=== PATIENT | male | born 1970 | race Caucasian/White ===

== ENCOUNTER → 2017-10-10 | Outpatient (CLI) | payer MEDICARE, OTHER ==
--- NOTE | 2017-10-10 09:59 | XR ---
Right foot HISTORY: Pain at first metatarsophalangeal joint, trauma one week prior 3 views of the right foot Bone mineralization, joint spaces and alignment are maintained. IMPRESSION: No fracture or dislocation.
== END | disposition home or self-care (01) ==
LOC: RADXRYALE 09:01
PROVIDERS: ATTEND Physician Assistant Medical
DX: S91.301A Unspecified open wound, right foot, initial encounter (principal)

== ENCOUNTER 2017-12-06 07:16 | Day surgery (SDC) | payer MEDICARE, OTHER ==
[2017-12-04 14:44] VITALS: BMI 40.4
[~2017-12-06 07:16] MED LIST: LACTATED RINGERS 1,000 ML IV SCH
[2017-12-06 07:34] VITALS: TEMP 97.5
[2017-12-06] MEDS ORDERED: LIDOCAINE 1% 20 ML VIAL (10MG/ML) FOR IV START INTRADERMA ONE (07:34)
[2017-12-06] MEDS ORDERED: LACTATED RINGERS 1,000 ML IV ONE (07:34)
[2017-12-06 07:41] LABS: Glucose,Whole Blood 133 mg/dL (75-99)
[2017-12-06] MEDS ORDERED: PROPOFOL 10 MG/ML 20 ML VIAL IV ONE (08:34)
[2017-12-06] MEDS ORDERED: LIDOCAINE 1% INJ 10MG/ML (20 ML MDV) ONE (08:34)
[2017-12-06 09:10] VITALS: RESP 16
[2017-12-06 09:22] VITALS: BP 117/76
[2017-12-06 09:34] VITALS: PULSE 69
--- NOTE | 2017-12-06 12:37 | P.PCN ---
Date of Procedure: 12/06/17 Procedure(s) Performed: procedure: 1. Esophagogastroduodenoscopy. 2. Total colonoscopy. Preoperative diagnosis: Iron deficiency anemia. Postoperative diagnosis: 1. Small sliding hiatal hernia with low grade esophagitisbut no evidence of complicated reflux disease. 2. Normal stomach and duodenum with no ulcers or bleeding. 3. Colon exam within normal limits. Preparation: HalfLytely prep. Sedation: Was provided by anesthesia. Brief clinical history: The patient is a 47-year-old male who is scheduled for this evaluation because of iron deficiency anemia. The patient has coronary atherosclerotic heart disease and had prior stents placed and has atrial fibrillation and AICD placed and has been on antiplatelet medications but no history of overt bleeding. He was continued on his antiplatelet medications for these examinations today. Procedure: With the patient on his left lateral decubitus position and after informed consent and adequate sedation, I passed the Olympus-GIF 160 video upper endoscope through the cricopharyngeus down the esophagus. GE junction was around 42-43 cm from the incisors and there was a small sliding hiatal hernia. There was occasional small erosion and linear small ulceration consistent with LA grade A esophagitis, but there were no strictures or Griffith' s esophagus or any large ulcers. The endoscope was then passed into the rest of the stomach which was insufflated with air and inspected in detail including the retroflex view in the cardia. there was some mottling and erythema in the antrum consistent with mild gastritis but no ulcers or erosions. Finally, the endoscope was passed through the pylorus into the duodenum. there was no obvious abnormalities noted. No biopsies were obtained since the patient was maintained on his antiplatelet therapy. The endoscope was then withdrawn and I proceeded with the colonoscopy. Perianal area did not show any fissures or fistulas. There were no masses felt on digital rectal examination. The Olympus CFQ 160L video colonoscope was then inserted in the rectum in the usual fashion and advanced to the cecum. The mucosa appeared healthy. No polyps or tumors were seen or any obvious diverticular disease or other pathology. I retroflexed the endoscope in the rectum before the endoscope was withdrawn. The patient tolerated the procedure well. Plan: The patient was reassured. He will follow up with you as planned. He can continue to use antacids or [id number] H2 blockers on as-needed basis. Consideration can be given for a capsule endoscopy if he continues to manifest iron deficiency anemia and there is evidence of blood in his stools.
== END 2017-12-06 09:48 | disposition home or self-care (01) ==
LOC: ORWHC2ENDO 07:16
DX: D50.9 Iron deficiency anemia, unspecified (principal); K44.9 Diaphragmatic hernia without obstruction or gangrene; E11.9 Type 2 diabetes mellitus without complications; K21.0 Gastro-esophageal reflux disease with esophagitis; G47.33 Obstructive sleep apnea (adult) (pediatric); I25.10 Atherosclerotic heart disease of native coronary artery without angina pectoris; I10 Essential (primary) hypertension; I25.2 Old myocardial infarction; I48.91 Unspecified atrial fibrillation; Z95.810 Presence of automatic (implantable) cardiac defibrillator; Z79.02 Long term (current) use of antithrombotics/antiplatelets; Z95.1 Presence of aortocoronary bypass graft; Z95.5 Presence of coronary angioplasty implant and graft; Z88.8 Allergy status to other drugs, medicaments and biological substances; Z91.048 Other nonmedicinal substance allergy status; Z87.891 Personal history of nicotine dependence; Z79.899 Other long term (current) drug therapy; Z79.4 Long term (current) use of insulin
CPT/HCPCS: 45378; 43235; J2001; J2704

== ENCOUNTER → 2018-01-29 | Outpatient (CLI) | payer MEDICARE, OTHER ==
--- NOTE | 2018-01-29 09:44 | XR ---
EXAMINATION TYPE: XR shoulder complete RT DATE OF EXAM: 01/29/2018 COMPARISON: NONE HISTORY: Pain TECHNIQUE: Three views are submitted. FINDINGS: The osseous structures are intact. There is no acute fracture or dislocation. AC joint arthropathy n oted. IMPRESSION: 1. No acute process. 2. AC joint arthropathy
== END | disposition home or self-care (01) ==
LOC: RADXRYALE 09:05
PROVIDERS: ATTEND Family Medicine
DX: M12.811 Other specific arthropathies, not elsewhere classified, right shoulder (principal)

== ENCOUNTER → 2018-04-09 | Outpatient (CLI) | payer MEDICARE, OTHER ==
--- NOTE | 2018-04-09 16:36 | FL ---
EXAMINATION TYPE: Right shoulder fluoroscopic-guided arthrogram injection. DATE OF EXAM: 04/09/2018 HISTORY: 48-year-old male right shoulder pain for 3 to 4 months, no improvement with physical therapy . PROCEDURES: 1. Right shoulder fluoroscopy. 2. Right shoulder arthrogram. Total fluoroscopy time: 28 seconds. Total images: 4. TECHNIQUE: The procedure, risks, and alternatives, were discussed with the patient, who requested that emmanuel khan The consent form was signed, and teach-back occurred. The site/side of the procedure was marked with a line with participation by the patient. The accompan doreen paperwork was verified for consistency. A directed history and physical exam was performed prior to the procedure. Medication reconciliation was performed by ancillary personnel. A critical pause was performed with assisting personnel just pr ior to the procedure, and the patient's identity was confirmed using 2 identifiers. Imaging guidance was utilized to select the precise skin entry point just prior to the procedure. The anterior right shoulder was prepped and draped in the usual sterile fashion and local 1% lidocain e anesthesia was instilled. Under fluoroscopic guidance, a 22 gauge spinal needle was introduced int o the anterior right glenohumeral joint. Appropriate needle tip position was confirmed after a small amount of contrast injection. Approximately 13 ml of a 50:50 mixture of Isovue-300 iodinated contrast and sterile saline was inject ed into the glenohumeral joint. The needle was then removed. The patient tolerated the procedure well . There was no immediate complication. After the procedure, the patient's condition was unchanged. Estimated blood loss was minimal. Postprocedure radiographs show moderate degenerative spurring at the acromial clavicular joint. Subac romial space is preserved. No jodie extension of contrast into the subacromial/subdeltoid bursa. Medi an sternotomy wires with pacer leads are present. The patient was counseled on routine post procedure precautions including monitoring for signs of inf ection. IMPRESSION: Technically successful right shoulder arthrogram injection for CT. Patient unable to receive MRI. No immediate complication.
--- NOTE | 2018-04-09 16:54 | CT ---
EXAMINATION TYPE: CT arthrogram right shoulder DATE OF EXAM: 04/09/2018 COMPARISON: Arthrogram injection same day and prior radiographs HISTORY: 48-year-old male with Right shoulder pain. TECHNIQUE: Contiguous axial scanning of the right shoulder performed intra-articular injection of a 1 3 mL contrast mixture, please refer to arthrogram injection of the same day for further details. Jorge nal/sagittal reconstructions performed. 3-D reconstructions generated on a dedicated independent work station. CT DLP: 625.1 mGycm Automated exposure control for dose reduction was used. FINDINGS: Moderate to severe degenerative joint space narrowing with moderate marginal spurring at the acromioc lavicular joint. Inferior spurring mildly impinges onto the underlying myotendinous junction of the s upraspinatus. No sizable acromial/subdeltoid bursal effusion by CT. Long head biceps tendon appears intact and appropriately situated along the bicipital groove. There is a prominent sublabral recess of the superior glenoid with suggestion of a concurrent small s uperior labral tear, see coronal image 109. Tiny focal cartilage defect along the mid glenoid just posterior to the central aspect measuring appr oximately 2 mm, coronal image 115 and axial image 67. In addition, there is thinning of the inferior humeral head articular cartilage. The remainder of the glenohumeral articular cartilage appears maint ained. Slight bony irregularity of the greater tuberosity but no abnormal extension of contrast into the sub stance of either supraspinatus or infraspinatus tendons. The subscapularis tendon also appears intact . No atrophy of the rotator cuff musculature. There is mild dysplasia of the posterior inferior glenoid but no additional labral tear seen here. No os acromiale or Hill-Sachs deformity. Visualized right lung appears clear. Prepress Stripper image shows left-sided pacemaker generator and median ster notomy wires. IMPRESSION: 1. Moderate overall AC joint OA with prominent inferior spurring impinging onto the underlying cuff. 2. Mild degenerative changes in the glenohumeral joint with thinning of the inferior humeral head art icular cartilage and a small 2 mm chondral defect along the mid glenoid. 3. Normal variation with a sublabral recess but a concurrent small superior labral tear. 4. No abnormal extension of contrast into the subacromial/subdeltoid bursa or into the substance of t he rotator cuff tendons to suggest a full-thickness or articular sided tear. Arthrographic technique is limited for assessment of bursal sided tears. No rotator cuff muscle atrophy.
== END ==
LOC: RADFLMAIN 12:28
PROVIDERS: ATTEND Family Medicine
DX: M19.011 Primary osteoarthritis, right shoulder (principal)
CPT/HCPCS: 82565; 84520; 23350; 73040; 36415; 73201; J2001; Q9967

== ENCOUNTER 2018-12-08 04:28 | Emergency (ER) | payer MEDICARE, OTHER ==
[2018-12-08] MEDS ORDERED: MUPIROCIN 2% OINT 22 GM TUBE TOPICAL STA (04:52)
[2018-12-08] MEDS ORDERED: HYDROcodone/APAP 5-325MG 1 EACH TAB PO STA (04:53)
[2018-12-08] MEDS ORDERED: IBUPROFEN 400 MG TAB PO STA (04:53)
--- NOTE | 2018-12-08 04:55 | ED ---
Lower Extremity Injury HPI - General Chief Complaint: Extremity Injury, Lower Stated Complaint: Lft Leg Injury Time Seen by Provider: 12/08/18 04:43 Source: patient Mode of arrival: ambulatory - History of Present Illness Initial Comments: This patient is a 48-year-old man who presents to be evaluated for lower leg injury. Patient states that earlier tonight he had bumped his roman on his daughter's bed frame. He noticed a small patch of skin was abraded. He states that since that time there has been increasing burning pain and he is not able to sleep. Patient states that he believes his last tetanus shot is up-to-date. MD Complaint: leg injury -: hour(s) Injury: Leg: Left Type of Injury: blunt Place: home Worsens With: nothing Context: direct blow Treatments Prior to Arrival: bandage - Related Data Home Medications Medication Instructions Recorded Confirmed Furosemide [Lasix] 40 mg PO DAILY 10/22/13 12/04/17 Insulin Glargine [Lantus] 80 unit SQ HS 10/22/13 12/04/17 metFORMIN HCL [Glucophage] 1,000 mg PO BID 10/22/13 12/04/17 Insulin Regular, Human [NovoLIN R] 0 - 1 dose SQ AC-TID PRN 01/27/15 12/04/17 Zolpidem [Ambien] 10 mg PO HS PRN 01/27/15 12/04/17 Atorvastatin Calcium [Lipitor] 20 mg PO HS 11/06/17 12/04/17 Carvedilol [Coreg] 12.5 mg PO BID 11/06/17 12/04/17 Cholecalciferol [Vitamin D3] 5,000 unit PO DAILY 11/06/17 12/04/17 Clopidogrel [Plavix] 75 mg PO DAILY 11/06/17 12/04/17 Dofetilide [Tikosyn] 250 mcg PO Q12HR 11/06/17 12/04/17 Gabapentin [Neurontin] 2,400 mg PO HS 11/06/17 12/04/17 Insulin Lispro [humaLOG Kwikpen] 7 unit SQ TID-W/MEALS 11/06/17 12/04/17 Lisinopril 40 mg PO DAILY 11/06/17 12/04/17 Rivaroxaban [Xarelto] 20 mg PO DAILY 11/06/17 12/04/17 Previous Rx's Medication Instructions Recorded Mupirocin 2% Oint [Bactroban 2% 1 applic TOPICAL TID #15 gm 12/08/18 Oint] Allergies Allergy/AdvReac Type Severity Reaction Status Date / Time prednisone Allergy Rash/Hives Verified 12/04/17 14:40 adhesive AdvReac blisters Verified 12/04/17 14:40 skin Review of Systems ROS Statement: Those systems with pertinent positive or pertinent negative responses have been documented in the HPI. ROS Other: All systems not noted in ROS Statement are negative. Constitutional: Denies: fever Respiratory: Denies: cough, dyspnea Cardiovascular: Denies: chest pain Skin: Reports: as per HPI Neurological: Denies: numbness, paresthesias Hematological/Lymphatic: Denies: easy bleeding Past Medical History Past Medical History: Atrial Fibrillation, Coronary Artery Disease (CAD), Diabetes Mellitus, Hypertension, Memory Impairment, Myocardial Infarction (CO), Sleep Apnea/CPAP/BIPAP Additional Past Medical History / Comment(s): C-PAP MACHINE, HX OF BACK SURGERY- DIFFICULTY GETTING ONTO BEDS AND STRETCHERS., CONSTIPATION. Last Myocardial Infarction Date:: unknown History of Any Multi-Drug Resistant Organisms: None Reported Past Surgical History: AICD, Cholecystectomy, Coronary Bypass/CABG, Heart Catheterization With Stent, Orthopedic Surgery, Pacemaker Additional Past Surgical History / Comment(s): LOWER LUMBAR FUSION-2011, CABG X5 (2007), CARPAL TUNNEL, ARTHROSCOPY RIGHT KNEE, LEFT SHOULDER, HEART CATH WITH STENT 2015 & APRIL 2017., PACEMAKER & AICD AUGUST 2017 ([employer]) Past Anesthesia/Blood Transfusion Reactions: No Reported Reaction Date of Last Stent Placement:: 2017 Type of Cardiac Device: Permanent Pacemaker, AICD Device Placement Date:: 08/2017 Past Psychological History: No Psychological Hx Reported Smoking Status: Former smoker Past Alcohol Use History: None Reported Past Drug Use History: None Reported - Past Family History Mother Family Medical History: Cancer General Exam General appearance: alert, in no apparent distress Neurological exam: Present: normal gait. Absent: motor sensory deficit Skin exam: Present: warm, dry, normal color, other (Patient has an approximately nickel sized abrasion to the pretibial area on the leg.) Course Vital Signs 12/08/18 04:31 Temperature 97.9 F Pulse Rate 79 Respiratory 20 Rate Blood Pressure 154/106 O2 Sat by Pulse 96 Oximetry Disposition Clinical Impression: Abrasion Disposition: HOME SELF-CARE Condition: Good Instructions (If sedation given, give patient instructions): Abrasion (ED) Prescriptions: Mupirocin 2% Oint [Bactroban 2% Oint] 1 applic TOPICAL TID #15 gm Is patient prescribed a controlled substance at d/c from ED?: No Referrals: Timoteo Castaneda DO [Primary Care Provider] - 1-2 days
[2018-12-08] MEDS ORDERED: LIDOCAINE VISCOUS 2% 15 ML CUP MUCOUS MEM STA (05:40)
[2018-12-08 07:16] VITALS: BP 155/99; PULSE 65; RESP 18; TEMP 98
== END 2018-12-08 07:20 | disposition home or self-care (01) ==
LOC: EC 04:28
DX: S80.812A Abrasion, left lower leg, initial encounter (principal); I48.91 Unspecified atrial fibrillation; I25.10 Atherosclerotic heart disease of native coronary artery without angina pectoris; E11.9 Type 2 diabetes mellitus without complications; I10 Essential (primary) hypertension; I25.2 Old myocardial infarction; G47.30 Sleep apnea, unspecified; Z87.891 Personal history of nicotine dependence; Z88.8 Allergy status to other drugs, medicaments and biological substances; Z91.048 Other nonmedicinal substance allergy status; Z79.4 Long term (current) use of insulin; Z79.01 Long term (current) use of anticoagulants; Z79.02 Long term (current) use of antithrombotics/antiplatelets; Z79.899 Other long term (current) drug therapy; Z95.0 Presence of cardiac pacemaker; Z95.1 Presence of aortocoronary bypass graft; Z95.5 Presence of coronary angioplasty implant and graft; Z98.1 Arthrodesis status; Z99.89 Dependence on other enabling machines and devices; W22.8XXA Striking against or struck by other objects, initial encounter; Y92.009 Unspecified place in unspecified non-institutional (private) residence as the place of occurrence of the external cause
CPT/HCPCS: 99283

== ENCOUNTER → 2020-03-01 | Outpatient (CLI) | payer MEDICARE ==
--- NOTE | 2020-03-02 02:33 | CT ---
EXAMINATION TYPE: CT abdomen pelvis w con DATE OF EXAM: 03/01/2020 COMPARISON: None HISTORY: Hematuria and low back pain. CT DLP: 2525.9 mGycm Automated exposure control for dose reduction was used. CONTRAST: Performed with IV Contrast, patient injected with 80ml mL of Isovue 300. Lung bases are clear. There is no pleural effusion. Heart is top normal in size. There is no pericard ial effusion. Liver and spleen are intact. Stomach is large. The bile ducts are not dilated. There are clips from c holecystectomy. Pancreas appears normal. There is no adrenal mass. There is poorly marginated 2 cm area of decreased enhancement lower pole of the right kidney. However on the delayed images this appears to have normal contrast density and I d o not see evidence of a renal mass. There is no hydronephrosis. There is 1 cm cortical cyst lower princess e right kidney. There is no retroperitoneal adenopathy. Bladder distends smoothly. There is no inguin al hernia. There is no free fluid in the pelvis. There is cortical thinning lower pole lateral aspect of the left kidney consistent with atrophy or scarring. There is no mesenteric edema. There is no ascites or free air. There is no bowel obstruction. Appendi x is not seen. There is no sign of thickened appendix. Delayed images show normal renal excretion. Th ere is posterior fusion surgery in the lower lumbar spine. There is no compression fracture. Lumbar v ertebra have normal alignment. The bony pelvis is intact. The hip joints appear normal. IMPRESSION: No significant abnormality. I do not see a cause for hematuria.
== END | disposition home or self-care (01) ==
LOC: RADCTMAIN 16:35
PROVIDERS: ATTEND Physician Assistant Medical
DX: R31.9 Hematuria, unspecified (principal); M54.5 Low back pain; G47.33 Obstructive sleep apnea (adult) (pediatric); G63 Polyneuropathy in diseases classified elsewhere; Z79.4 Long term (current) use of insulin
CPT/HCPCS: 82565; 84520; 74177; 36415; Q9967

== ENCOUNTER → 2020-10-07 | Outpatient (CLI) | payer MEDICARE ==
[2020-10-07 16:16] VITALS: BMI 39.8
== END | disposition home or self-care (01) ==
LOC: DBWHC3 10:04
PROVIDERS: ATTEND Family Medicine
DX: E11.65 Type 2 diabetes mellitus with hyperglycemia (principal)

== ENCOUNTER → 2021-12-26 | Outpatient (CLI) | payer OTHER ==
--- NOTE | 2021-12-26 09:41 | XR ---
EXAM TYPE: LUMBAR SPINE X RAY SERIES COMPARISON: 09/28/2015 HISTORY: Pain TECHNIQUE: 4 views are submitted. FINDINGS: Alignment is anatomic. The pedicles are intact. The transverse processes are intact. There is post laminectomy changes with transpedicular screws L4-S1. Alignment is stable from prior study. Multileve l hypertrophic spurring and degenerative disc disease. No spondylolisthesis. Postsurgical clips in th e gallbladder fossa. Vascular calcification is noted. IMPRESSION: 1. Postoperative changes
== END | disposition home or self-care (01) ==
LOC: RADXRYALE 09:18
PROVIDERS: ATTEND Physician Assistant Medical
DX: M54.50 Low back pain, unspecified (principal); V40.6XXA Car passenger injured in collision with pedestrian or animal in traffic accident, initial encounter
CPT/HCPCS: 72110

== ENCOUNTER → 2022-09-11 | Outpatient (CLI) | payer MEDICARE, OTHER ==
--- NOTE | 2022-09-11 17:04 | CT ---
EXAMINATION TYPE: CT chest wo con DATE OF EXAM: 09/11/2022 COMPARISON: 10/22/2013 HISTORY: Chest pain. CT DLP: 647.7 mGycm, Automated exposure control for dose reduction was used. CONTRAST: Performed injected with 0 mL of Isovue 300. TECHNIQUE: Axial images were obtained at 5 mm thick sections. Reconstructed images are reviewed on [facility] computer in the coronal plane. FINDINGS: Portion of the thyroid visualized is normal. There is a new punctate density within the anterior right middle lobe. Series 4 image 37 No enlarged mediastinal or hilar adenopathy is evident. The ascending aorta diameter at the level o f the main pulmonary artery is 4.2 cm. The main pulmonary artery diameter at the bifurcation is 2.9 cm. Moderate coronary artery calcification is present. Limited CT sections are obtained through the upper abdomen. Abdomen is essentially unremarkable. IMPRESSIONS: 1. Punctate nodular density anterior right middle lobe. Follow-up in one year is recommended.
== END | disposition home or self-care (01) ==
LOC: RADCTMAIN 09:37
PROVIDERS: ATTEND Family Medicine
DX: J98.4 Other disorders of lung (principal); I42.0 Dilated cardiomyopathy; R07.89 Other chest pain; Z87.891 Personal history of nicotine dependence
CPT/HCPCS: 71250

== ENCOUNTER 2022-10-20 12:33 | Day surgery (SDC) | payer MEDICARE, OTHER ==
[2022-10-20] MEDS: LACTATED RINGERS 1,000 ML IV SCH ×2 (14:01→15:01)
[2022-10-20 14:43] VITALS: TEMP 97
[2022-10-20 14:56] LABS: Glucose,Whole Blood 120 mg/dL (70-110)
[2022-10-20] MEDS ORDERED: PROPOFOL 10 MG/ML 20 ML VIAL IV ONE (15:01)
[2022-10-20] MEDS ORDERED: fentaNYL (PF) 50 MCG/ML 2 ML AMP ONE (15:01)
[2022-10-20] MEDS ORDERED: LIDOCAINE 2% INJ 20 MG/ML (2 ML VIAL) ONE (15:01)
--- NOTE | 2022-10-20 15:14 | P.PCN ---
Date of Procedure: 10/20/22 Procedure(s) Performed: BRIEF HISTORY: Patient is a 52-year-old, pleasant, white male scheduled for an upper endoscopy as a part of evaluation of chronic epigastric pain for the last 18 months duration. He is presently on Pepcid 20 mg twice daily as well as Carafate 1 g 4 times daily with some relief. He has prior history of peptic ulcer disease several years ago.. PROCEDURE PERFORMED: Esophagogastroduodenoscopy and biopsy. PREOPERATIVE DIAGNOSIS: Chronic epigastric pain of 18 months duration. IV sedation per anesthesia. PROCEDURE: After informed consent was obtained, the patient was brought into the endoscopy unit. IV sedation was administered by Anesthesia under continuous monitoring. Initially the Olympus GIF-140 video endoscope was inserted into the mouth. Esophagus intubated without any difficulty. It was gradually advanced into the stomach and duodenum and carefully examined. The bulb and the second part of the duodenum appeared normal. Biopsies were done from the duodenum to rule out celiac disease The scope at this time was withdrawn to the stomach, adequately insufflated with air, and upon careful examination, mucosa of the antrum, had mild diffuse gastritis and biopsies were done from this area. Mucosa of the body, cardia and the fundus appeared normal. The scope was then withdrawn into the esophagus. The GE junction was located at 43 cm from the incisors. The esophagus appeared normal. There were no erosions or ulcerations seen , biopsies were done from the distal esophagus and the patient tolerated the procedure well. IMPRESSION: 1. Mild diffuse antral gastritis. 2. No evidence of esophagitis or peptic ulcer disease. RECOMMENDATIONS: The findings of this examination were discussed with the patient as well as his family. He was advised to follow with the biopsy results. Increase the Pepcid 20 mg twice daily and continue with Carafate 1 g 4 times daily.
[2022-10-20 15:35] VITALS: BP 110/73; PULSE 67; RESP 18
== END 2022-10-20 15:46 | disposition home or self-care (01) ==
LOC: ORWHC2ENDO 12:33
PROVIDERS: ATTEND Internal Medicine Gastroenterology
DX: K29.50 Unspecified chronic gastritis without bleeding (principal); K21.00 Gastro-esophageal reflux disease with esophagitis, without bleeding; G89.29 Other chronic pain; Z87.11 Personal history of peptic ulcer disease
CPT/HCPCS: 88305; 43239; J3010; J2704; J2001

== ENCOUNTER → 2024-03-14 | Outpatient (CLI) | payer MEDICARE, OTHER ==
--- NOTE | 2024-03-14 12:31 | XR ---
EXAMINATION TYPE: XR knee complete bilateral, XR femur LT DATE OF EXAM: 03/14/2024 12:19 PM INDICATION: Patient age:Male; 53 years old; Reason for study: [id number] MÓNICA KNEE PAIN,FEMUR PAIN; [facility]. pain COMPARISON: Lumbosacral spine radiograph 09/28/2015 TECHNIQUE: Both knees are examined in frontal, lateral, and oblique projections. The left femur was e xamined in frontal and lateral projections. FINDINGS: No evidence of any acute osseous pathology, soft tissue swelling, or joint effusion is no mulugeta. No significant joint space narrowing or osteophytes. Atherosclerotic calcification within both v isualized lower extremities. Surgical clips are identified within the medial soft tissues of both low er extremities. Pelvic phleboliths. Partial visualization of lumbosacral spine fusion hardware. IMPRESSION: No acute osseous pathology. [facility], , 03/14/2024 12:29 PM
== END | disposition home or self-care (01) ==
LOC: RADXRYALE 11:54
PROVIDERS: ATTEND Family Medicine
DX: M25.561 Pain in right knee (principal); M25.562 Pain in left knee; M79.605 Pain in left leg

== ENCOUNTER → 2024-04-18 | Outpatient (CLI) | payer MEDICARE, OTHER ==
--- NOTE | 2024-04-18 15:49 | XR ---
EXAMINATION TYPE: XR knee complete LT DATE OF EXAM: 04/18/2024 3:36 PM COMPARISON: None CLINICAL INDICATION: Male, 54 years old with history of [id number] LT KNEE PAIN; [facility], pain TECHNIQUE: XR knee complete LT 3 views submitted. FINDINGS: No evidence of any acute osseous pathology, soft tissue swelling, or joint effusion is no mulugeta. Tricompartmental osteophyte formation involving the femoral condyles, tibial plateau and patella . Mild joint space narrowing. Atherosclerosis of the arterial vasculature. IMPRESSION: 1. No acute osseous pathology. 2. Mild tricompartmental osteoarthritic changes. [facility], , 04/18/2024 3:46 PM
== END | disposition home or self-care (01) ==
LOC: RADXRYALE 15:24
PROVIDERS: ATTEND Family Medicine
DX: M17.12 Unilateral primary osteoarthritis, left knee (principal)